=== PATIENT | male | born 1995 | race African-American/Black ===

== ENCOUNTER → 2017-12-18 | Outpatient (CLI) | payer OTHER | LOC: COL.PUL 07:56 | DX: R06.02 Shortness of breath (principal); Z79.899 Other long term (current) drug therapy ==

== ENCOUNTER → 2017-12-24 | Outpatient (CLI) | payer OTHER | LOC: COL.PUL 12:58 | DX: R06.02 Shortness of breath (principal) | CPT/HCPCS: J7674 ==